=== PATIENT | female | born 1965 | race Caucasian/White ===

== ENCOUNTER 2021-03-30 10:43 | Emergency (ER) | payer BC | END 2021-03-30 13:30 | disposition home or self-care (01) | LOC: JD.ED 10:43 | DX: J06.9 Acute upper respiratory infection, unspecified (principal); Z79.899 Other long term (current) drug therapy; Z20.822 Contact with and (suspected) exposure to COVID-19 | CPT/HCPCS: 36415; 71045; 71045-26; 80053; 85025; 86140; 87804; 99283-25; U0002 ==

== ENCOUNTER 2024-02-17 13:56 | Emergency (ER) | payer BC ==
[2024-02-17] MEDS: Sodium Chloride 0.9% 1,000 ML IV ONE (17:35)
[2024-02-17] MEDS: Sodium Chloride 0.9% 1,000 ML ONE (17:35)
[2024-02-17] MEDS: Propofol 200 MG/20 ML SDV IVPUSH ONE (18:06)
[2024-02-17] MEDS: Ketorolac 15 MG/ML SDV IVPUSH ONE (18:19)
== END 2024-02-17 19:28 | disposition home or self-care (01) ==
LOC: JD.ED 13:56
DX: S52.502A Unspecified fracture of the lower end of left radius, initial encounter for closed fracture (principal); E03.9 Hypothyroidism, unspecified; Z86.16 Personal history of COVID-19; Z79.890 Hormone replacement therapy; Z79.899 Other long term (current) drug therapy; W19.XXXA Unspecified fall, initial encounter
CPT/HCPCS: 25605; 73090; 73100; 96374; 99283; J1885; J2704; J7030